=== PATIENT | male | born 1985 | race Asian ===

== ENCOUNTER 2016-09-28 11:37 | Outpatient (CLI) | payer BC ==
--- NOTE | 2016-09-28 12:10 | PN ---
Date/Time of Note Date/Time of Note DATE: 09/28/16 TIME: 12:03 Assessment/Plan Assessment/Plan Assessment/Plan [facility] Outpatient Progress Note Date of Service: 09/28/2016 Today's Assessment & Plan: Overall stable and doing well after laparoscopic appendectomy for severe acute appendicitis and periappendicitis at [facility] on 2016. No evidence for major postoperative complication or surgical site infection. No indication for acute surgical intervention. With above assessment, I've recommended the following for today: 1. Follow-up with primary care physician 2. Follow-up with us as needed Thank you again for your great care of this very pleasant gentleman and his wonderful family. If there are any questions, please feel free to call me at [phone]. Disclaimer: Inadvertent spelling and grammatical errors are likely due to EHR/ dictation software use and do not reflect on the quality of delivered patient care. Also, please note that the electronic time recorded on this node does not necessarily reflect the actual time of the visit. Updated Clinical Summary: Very pleasant otherwise relatively healthy 30-year-old gentleman, status post laparoscopic appendectomy for severe acute appendicitis and periappendicitis at [facility] on 09/07/2016. Comorbidities: 1. BMI 29 2. Reflux disease, treated with omeprazole 3. Status post laparoscopic appendectomy for severe acute appendicitis and periappendicitis at [facility] on 09/07/2016 Subjective: No major events or complaints; no abd pain and under control with medications; no n/v/d; no sob or cp; + flatus; + BM and normal; + activity Objective: Vitals: See below Exam: GENERAL: On exam, the patient was sitting up in a chair and appeared to be comfortable and in no acute distress. ABDOMEN: Soft, nontender and nondistended. Incisions are clean, dry and intact without any evidence of erythema, edema, discharge, or hernia. There are no peritoneal signs or guarding. SKIN: Skin appears to be pink and feels warm to touch. NEUROLOGIC: Patient is awake, alert, and follows commands appropriately. KAREN MALDONADO M.D. Sep 28, 2016 12:10
== END 2016-09-28 16:44 | disposition home or self-care (01) ==
LOC: HPC 11:37
PROVIDERS: ATTEND Transplant Surgery
DX: Z09 Encounter for follow-up examination after completed treatment for conditions other than malignant neoplasm (principal); K21.9 Gastro-esophageal reflux disease without esophagitis; Z87.19 Personal history of other diseases of the digestive system
CPT/HCPCS: G0463